=== PATIENT | female | born 1955 | race Caucasian/White ===

== ENCOUNTER 2017-03-10 10:13 | Inpatient (IN) | payer OTHER ==
[2017-03-10 10:47] LABS: Basophils % (Auto) 0.6 % (0.0-1.8); Eosinophils % (Auto) 4.5 % (0.0-4.3); Hematocrit 41.7 % (30.3-42.9); Hemoglobin 13.6 gm/dl (10.1-14.3); Mean Corpuscular HGB Conc 33 % (30-34); Mean Corpuscular Hemoglobin 29 pg (28-32); Mean Corpuscular Volume 89 fl (79-97); Platelet Count 163 K/mm3 (140-440); Red Blood Count 4.69 M/mm3 (3.65-5.03); White Blood Count 7.2 K/mm3 (4.5-11.0)
[2017-03-10 11:15] LABS: Anion Gap 20 mmol/L; Blood Urea Nitrogen 12 mg/dL (7-17); Calcium 8.6 mg/dL (8.4-10.2); Carbon Dioxide 25 mmol/L (22-30); Chloride 99.1 mmol/L (98-107); Glucose 365 mg/dL (65-100); Potassium 4.4 mmol/L (3.6-5.0); Sodium 140 mmol/L (137-145)
--- NOTE | 2017-03-10 11:35 | XRay Report ---
CHEST 2 VIEWS INDICATION: Chest pain, shortness of breath. COMPARISON: 08/17/2014. FINDINGS: PA and lateral chest radiographs demonstrate normal cardiomediastinal silhouette. Clear lungs. Mild thoracic spine degenerative spurring. CONCLUSION: No acute disease in the chest. Thank you for the opportunity to participate in this patient's care.
--- NOTE | 2017-03-10 11:57 | Emergency Department Report ---
Chief Complaint: Chest Pain Stated Complaint: ERICK/CHEST PAIN Time Seen by Provider: 03/10/17 11:52 - HPI History of Present Illness: PT c/o L sided chest pain that started at 0800 gradually onset, + sob PT states symptoms started after she at breakfast Pt states her daughter told her to take ASA but her coworkers thought she needed to be evaluated in ED PT states she is not taking her Metformin because she can not afford it. PT states her medication is $30 dollars a month - ROS Review of Systems: + nausea + chest pain + sob + intermittent fluttering in chest - weakness - Exam Vital Signs: Vital Signs 03/10/17 10:23 Temperature 99.2 F Pulse Rate 88 Respiratory 17 Rate Blood Pressure 165/88 O2 Sat by Pulse 97 Oximetry Physical Exam: PT is alert steady gait no acute resp distress + chest wall ttp no acute focal weakness MSE screening note: Focused history and physical exam performed. Due to findings the following was ordered: lab ED Medical Decision Making - Lab Data Result diagrams: 03/10/17 10:35 03/10/17 10:35 ED Disposition for MSE Condition: Stable Referrals: MARILEE WERI MD [Primary Care Provider] - 3-5 Days
[2017-03-10] MEDS ORDERED: ASPIRIN PO ONE (13:54)
[2017-03-10] MEDS ORDERED: CARAFATE PO ONE (13:54)
[2017-03-10] MEDS ORDERED: ALUM-MAG HYDROX-SIMETH 200-200-20MG/5ML PO ONE (13:54)
[2017-03-10] MEDS ORDERED: NITROSTAT SL PRN (13:54)
--- NOTE | 2017-03-10 13:55 | Emergency Department Report ---
ED Chest Pain HPI - General Chief Complaint: Chest Pain Stated Complaint: ERICK/CHEST PAIN Time Seen by Provider: 03/10/17 11:52 Source: patient, RN notes reviewed, old records reviewed Mode of arrival: Ambulatory Limitations: No Limitations - History of Present Illness Initial Comments: This is a 61-year-old female. She is previously unknown to me. Her primary care doctor is Dr. Lee Rivers. Past medical history includes obesity, hypertension and diabetes. The patient presents to the ER with a complaint of chest pain. The chest pain is left-sided and radiates down the left upper extremity. It is associated with nausea, shortness of breath, sensation of impending doom. There is no leg pain. There is no leg swelling. No recent trips greater than 4 hours. No recent hospital admissions. No recent cocaine use. No recent aspirin use. No recent cardiac risk stratification. MD Complaint: chest pain -: Gradual Onset: during rest Pain Location: left chest Pain Radiation: LUE Quality: tightness, heaviness Consistency: intermittent Improves With: nothing Worsens With: nothing re: nausea, diaphoresis, dyspnea, sense of impending doom Other Symptoms: denies: cough, fever Treatments Prior to Arrival: none Aspirin use within the Past 7 Days: (0) No - Related Data On Oral Contraceptives: No Home Medications Medication Instructions Recorded Confirmed Last Taken Acetaminophen with Codeine 1 each PO Q6HR PRN 03/10/17 03/10/17 03/10/17 [Acetaminophen-Codeine #2 TAB] Gabapentin [Neurontin] 300 mg PO Q8HR 03/10/17 03/10/17 03/10/17 Allergies Allergy/AdvReac Type Severity Reaction Status Date / Time No Known Allergies Allergy Unverified 08/17/14 21:15 Heart Score - HEART Score History: Highly suspicious EKG: Normal Age: 45-65 Risk factors: > 3 risk factors or hx of atherosclerotic disease Troponin: < normal limit HEART Score: 5 - Critical Actions Critical Actions: 4-6 pts:12-16.6% risk of adverse cardiac event. Should be admitted ED Review of Systems ROS: Stated complaint: ERICK/CHEST PAIN Other details as noted in HPI Constitutional: diaphoresis, malaise, weakness Eyes: denies: vision change ENT: denies: epistaxis Respiratory: shortness of breath Cardiovascular: chest pain Gastrointestinal: nausea Genitourinary: denies: dysuria Musculoskeletal: arthralgia Skin: denies: lesions Neurological: numbness, paresthesias ED Past Medical Hx - Past Medical History Hx Diabetes: Yes (no meds) Hx Arthritis: Yes Additional medical history: Pneumonia numerous times, right leg pain - Surgical History Past Surgical History?: Yes Hx Cholecystectomy: Yes Additional Surgical History: - Social History Smoking Status: Never Smoker Substance Use Type: Alcohol - Medications Home Medications: Home Medications Medication Instructions Recorded Confirmed Last Taken Type Acetaminophen with Codeine 1 each PO Q6HR PRN 03/10/17 03/10/17 03/10/17 History [Acetaminophen-Codeine #2 TAB] Gabapentin [Neurontin] 300 mg PO Q8HR 03/10/17 03/10/17 03/10/17 History ED Physical Exam - General Limitations: No Limitations General appearance: alert, in no apparent distress - Head Head exam: Present: atraumatic, normocephalic - Eye Eye exam: Present: normal appearance, EOMI. Absent: nystagmus - ENT ENT exam: Present: normal exam, normal orophraynx, mucous membranes moist, normal external ear exam - Neck Neck exam: Present: normal inspection, full ROM. Absent: tenderness, meningismus - Respiratory Respiratory exam: Present: normal lung sounds bilaterally, chest wall tenderness (there is reproducible chest wall tenderness. There is no breast tenderness. During the process examination, I'm escorted by [facility]). Absent: respiratory distress, wheezes, rales, rhonchi, stridor - Cardiovascular Cardiovascular Exam: Present: regular rate, normal rhythm. Absent: systolic murmur, diastolic murmur, rubs, gallop - GI/Abdominal GI/Abdominal exam: Present: soft, normal bowel sounds. Absent: distended, tenderness, guarding, rebound, rigid - Extremities Exam Extremities exam: Present: normal inspection, full ROM, normal capillary refill. Absent: tenderness, pedal edema, joint swelling, calf tenderness - Back Exam Back exam: Present: normal inspection, full ROM. Absent: tenderness, CVA tenderness (R), CVA tenderness (L), muscle spasm, paraspinal tenderness, vertebral tenderness - Neurological Exam Neurological exam: Present: alert, oriented X3, normal gait, other (Extraocular movements intact. Tongue midline. No facial droop. Facial sensation intact to light touch in the V1, V2, V3 distribution bilaterally. 5 and 5 strength in 4 extremities.. Sensation is intact to light touch in 4 extremities.). Absent : motor sensory deficit - Psychiatric Psychiatric exam: Present: normal affect, normal mood - Skin Skin exam: Present: warm, dry, intact, normal color. Absent: rash ED Course Vital Signs 03/10/17 03/10/17 03/10/17 10:23 13:51 14:01 Temperature 99.2 F Pulse Rate 88 72 78 Respiratory 17 11 L Rate Blood Pressure 165/88 152/69 Blood Pressure [Left] O2 Sat by Pulse 97 96 Oximetry 03/10/17 03/10/17 03/10/17 14:11 14:21 14:30 Temperature Pulse Rate 73 72 73 Respiratory 10 L 11 L 9 L Rate Blood Pressure 152/69 157/91 147/72 Blood Pressure [Left] O2 Sat by Pulse 97 99 98 Oximetry 03/10/17 03/10/17 03/10/17 14:41 14:51 15:00 Temperature Pulse Rate 74 70 72 Respiratory 14 14 11 L Rate Blood Pressure 147/72 151/82 166/82 Blood Pressure [Left] O2 Sat by Pulse 96 97 97 Oximetry 03/10/17 03/10/17 03/10/17 15:11 15:21 15:30 Temperature Pulse Rate 71 70 72 Respiratory 10 L 16 16 Rate Blood Pressure 166/82 163/90 162/89 Blood Pressure [Left] O2 Sat by Pulse 98 91 95 Oximetry 03/10/17 03/10/17 03/10/17 15:45 15:51 16:00 Temperature Pulse Rate 72 71 69 Respiratory 14 14 10 L Rate Blood Pressure 162/89 155/102 155/102 Blood Pressure [Left] O2 Sat by Pulse 98 96 98 Oximetry 03/10/17 03/10/17 03/10/17 16:11 16:21 16:31 Temperature Pulse Rate 69 68 70 Respiratory 15 17 12 Rate Blood Pressure 162/89 162/89 162/89 Blood Pressure [Left] O2 Sat by Pulse 97 92 96 Oximetry 03/10/17 03/10/17 03/10/17 16:41 16:51 17:01 Temperature Pulse Rate 67 66 71 Respiratory 16 19 12 Rate Blood Pressure 154/81 154/81 154/81 Blood Pressure [Left] O2 Sat by Pulse 98 97 98 Oximetry 08/03/10/17 03/10/17 17:11 17:27 17:31 Temperature Pulse Rate 68 75 67 Respiratory 12 18 11 L Rate Blood Pressure 154/81 154/81 154/81 Blood Pressure [Left] O2 Sat by Pulse 97 97 97 Oximetry 03/10/17 03/10/17 03/10/17 17:41 17:51 18:01 Temperature Pulse Rate 67 69 71 Respiratory 12 13 17 Rate Blood Pressure 154/81 154/81 154/81 Blood Pressure [Left] O2 Sat by Pulse 96 98 95 Oximetry 03/10/17 03/10/17 03/10/17 18:11 18:21 18:25 Temperature Pulse Rate 73 69 Respiratory 14 13 16 Rate Blood Pressure 154/81 154/81 Blood Pressure [Left] O2 Sat by Pulse 97 96 98 Oximetry 03/10/17 03/10/17 18:31 18:32 Temperature Pulse Rate 74 72 Respiratory 17 18 Rate Blood Pressure 154/81 Blood Pressure 135/96 [Left] O2 Sat by Pulse 97 97 Oximetry SUMANTH score - Sumanth Score Age > 65: (0) No Aspirin use within the Past 7 Days: (0) No 3 or more CAD Risk Factors: (1) Yes 2 or more Angina events in past 24 hrs: (1) Yes Known CAD with more than 50% Stenosis: (0) No Elevated Cardiac Markers: (0) No ST Deviation Greater than 0.5mm: (0) No SUMANTH Score: 2 ED Medical Decision Making - Lab Data Result diagrams: 03/10/17 10:35 03/11/17 05:30 Vital Signs 03/10/17 03/10/17 03/10/17 10:23 13:51 14:01 Temperature 99.2 F Pulse Rate 88 72 78 Respiratory 17 11 L Rate Blood Pressure 165/88 152/69 O2 Sat by Pulse 97 96 Oximetry 03/10/17 14:11 Temperature Pulse Rate 73 Respiratory 10 L Rate Blood Pressure 152/69 O2 Sat by Pulse 97 Oximetry Lab Results 03/10/17 03/10/17 03/10/17 Range/Units 10:35 10:35 10:35 WBC 7.2 (4.5-11.0) K/mm3 RBC 4.69 (3.65-5.03) M/mm3 Hgb 13.6 (10.1-14.3) gm/dl Hct 41.7 (30.3-42.9) % MCV 89 (79-97) fl MCH 29 (28-32) pg MCHC 33 (30-34) % RDW 14.0 (13.2-15.2) % Plt Count 163 (140-440) K/mm3 Lymph % (Auto) 32.3 (13.4-35.0) % Mcdonald % (Auto) 6.6 (0.0-7.3) % Eos % (Auto) 4.5 H (0.0-4.3) % Baso % (Auto) 0.6 (0.0-1.8) % Lymph # 2.3 (1.2-5.4) K/mm3 Mcdonald # 0.5 (0.0-0.8) K/mm3 Eos # 0.3 (0.0-0.4) K/mm3 Baso # 0.0 (0.0-0.1) K/mm3 Seg Neutrophils % 56.0 (40.0-70.0) % Seg Neutrophils # 4.0 (1.8-7.7) K/mm3 Sodium 140 (137-145) mmol/L Potassium 4.4 (3.6-5.0) mmol/L Chloride 99.1 (98-107) mmol/L Carbon Dioxide 25 (22-30) mmol/L Anion Gap 20 mmol/L BUN 12 (7-17) mg/dL Creatinine 0.6 L (0.7-1.2) mg/dL Estimated GFR > 60 ml/min BUN/Creatinine Ratio 20.00 % Glucose 365 H (65-100) mg/dL Calcium 8.6 (8.4-10.2) mg/dL Troponin T < 0.010 (0.00-0.029) ng/mL Lipase 27 (13-60) units/L // Range/Units 13:28 WBC (4.5-11.0) K/mm3 RBC (3.65-5.03) M/mm3 Hgb (10.1-14.3) gm/dl Hct (30.3-42.9) % MCV (79-97) fl MCH (28-32) pg MCHC (30-34) % RDW (13.2-15.2) % Plt Count (140-440) K/mm3 Lymph % (Auto) (13.4-35.0) % Mcdonald % (Auto) (0.0-7.3) % Eos % (Auto) (0.0-4.3) % Baso % (Auto) (0.0-1.8) % Lymph # (1.2-5.4) K/mm3 Mcdonald # (0.0-0.8) K/mm3 Eos # (0.0-0.4) K/mm3 Baso # (0.0-0.1) K/mm3 Seg Neutrophils % (40.0-70.0) % Seg Neutrophils # (1.8-7.7) K/mm3 Sodium (137-145) mmol/L Potassium (3.6-5.0) mmol/L Chloride (98-107) mmol/L Carbon Dioxide (22-30) mmol/L Anion Gap mmol/L BUN (7-17) mg/dL Creatinine (0.7-1.2) mg/dL Estimated GFR ml/min BUN/Creatinine Ratio % Glucose (65-100) mg/dL Calcium (8.4-10.2) mg/dL Troponin T < 0.010 (0.00-0.029) ng/mL Lipase (13-60) units/L - EKG Data -: EKG Interpreted by Me - EKG Data 03/10/17 15:07 EKG #1 demonstrates normal sinus, 87 beats per minute, left axis urination, borderline high left ventricular voltage, poor R progression, abnormal EKG, not morphologic consistent with STEMI. EKG #2 demonstrates normal sinus, premature ventricular contractions, 80 bpm, resolution of left axis deviation, resolution of poor progression, abnormal EKG , not morphologically consistent with STEMI. - Radiology Data Radiology results: image reviewed interpreted by me: X-ray the chest is negative for acute disease - Medical Decision Making Differential diagnosis: Acute coronary syndrome, GERD, gastritis, costochondritis Assessment and plan: 61-year-old female with chest pain, shortness of breath, diaphoresis, nausea, abnormal EKG. No pulmonary embolus or DVT risk factors, low risk by well's criteria. There is a reproducible component to the patient' s chest wall pain, however her clinical history was very impressive, and does not have close outpatient follow-up. Therefore, she will be admitted to the hospital for acute coronary syndrome risk stratification. The case was presented to the Hospital physician, Dr. Greenfield, who accepted the patient to his service. Critical care attestation.: If time is entered above; I have spent that time in minutes in the direct care of this critically ill patient, excluding procedure time. ED Disposition Clinical Impression: Abnormal EKG Chest pain Qualifiers: Ischemic chest pain type: unspecified angina pectoris type Qualified Code(s): I20.9 - Angina pectoris, unspecified Disposition: 09 OP ADMIT IP TO THIS HOSP Is pt being admited?: Yes Condition: Stable
--- NOTE | 2017-03-10 15:16 | Admit Criteria Form ---
Admission Criteria Documentation: CARDIOLOGY GRG Clinical Indications for Admission to Inpatient Care ([place]/check or initial the applicable condition/criteria) Hospital admission is needed for appropriate care of the patient because of ANY ONE of the following: [ ] I. Hemodynamic instability as indicated by ALL of the following (1)(2)(3) (4)(5)(6)(7)(8)(9)(10) [ ]a) Vital sign abnormality not readily corrected by appropriate treatment with 12-24 hours for ANY ONE: [ ]i) Hypotension that persists despite appropriate treatment (eg, volume repletion) [ ]ii) Tachycardiathat persists despite appropriate tx ( e.g., analgesia, fluids, sedation as indicated [ ]iii) Orthostatic vital sign changes that persists despite appropriate treatment (eg, volume repletion) [ ]b) Vital sign abnormailty that is severe indicated by ANY ONE of the following: [ ]i) Inadequate perfusion indicated by ANY ONE of the following: [ ] 1) Lactic acidosis (> 2 mmol/L) [ ] 2) New abnormal capillary refill (> 3 seconds) [ ] 3) Reduced urine output [ ] 4) New altered mental status [ ] 5) Myocardial Ischemia [ ] 6) Other metabolic acidosis (arterial pH <7.35 ) not otherwise explained. [ ]ii) Mean arterial pressure[A] less than 60 mm Hg [ ]iii) Mean arterial pressure[A] less than 70 mm Hg after 30 minutes of appropriate treatment (eg, fluid resuscitation) [ ]iv) Sustained heart rate greater than 120 beats per minute in adult or child 6 years or older[B] [ ]v) IV inotropic or vasopressor medication required to maintain adequate blood pressure or perfusion [ ] II. Severe heart failure as indicated by ANY ONE of the following(17)(18) [ ]a) Respiratory distress [ ]b) Hypotension [ ]c) Debilitating anasarca refractory to therapy (eg, tissue breakdown with infection)[C](19) [ ]d) Cardiac arrhythmias of immediate concern [ ]e) Myocardial ischemia [ ] III. Cardiac arrhythmias or findings of immediate concern indicated by ANY ONE of the following (21)(22): [ ] a) Heart rhythms that are inherently dangerous or unstable indicated by ANY ONE of the following (23)(24)(25): [ ] i) Resuscitated ventricular fibrillation or cardiac arrest [ ] ii) Ventricular escape rhythm [ ] iii) Sustained ventricular tachycardia (30 seconds or more of ventricular rhythm at greater than 100 beats per minute) [ ] iv) Nonsustained ventricular tachycardia and ANY ONE of the following: [ ] 1) Suspected cardiac ischemia as cause or consequence of ventricular tachycardia [ ] 2) Acute myocarditis [ ] b) Unstable cardiac conduction defects indicated by ANY ONE of the following(25)(26)(27) [ ] i) Type II second-degree atrioventricular block [ ]ii) Third-degree atrioventricular block [ ]iii) New-onset left bundle branch block with suspected myocardial ischemia [ ]c) Any heart rhythm and ANY ONE of the following (23)(24)(28)(29) (30) [ ] i) Continuous long-term ECG monitoring needed (e.g., initiation of drug requiring monitoring for more than 24 hours) [ ] ii) Patient has automatic implanted cardioverter defibrillator that is repeatedly firing, malfunctioning, or in need of immediate adjustment of settings beyond the scope of ambulatory or observation care [ ]d) Heart rhythms of concern due to ANY ONE of the following: [ ] i) Hypotension [ ] ii) Respiratory distress [ ] iii) Association with other significant symptoms (e.g., bradycardia with syncope or ongoing dizziness, supraventricular tachycardia with chest pain (28)(29)(31) [ ] IV. Monitoring for cardiac contusion beyond the scope of observation care needed [A](32)(33)(34) [ ] V. Surgical or device complication (e.g., valve replacement complication , ICD disfunction or pacemaker dysfunction) (49)(50)(51)(52)(53)(54) [ ] . Inpatient palliative care needed. [F](51)(52) Also use Inpatient Palliative Care Criteria [ ] VII. Nonbacterial thrombotic (marantic) endocarditis(43)(44)(55)(56)(57) [X ] VIII. Cardiology condition, symptom, or finding for which emergency and observation care has failed or are not considered appropriate. [ ] IX. Acute valvular disease requiring inpatient as indicated by ANY ONE of the following (40)(41) [ ]a) Acute valvular regurgitation (42) [ ]b) Noninfectious valvulitis (43)(44) [ ]c) Obstructive valve thrombosis (45)(46) [ ]d) Paravalvular leak(47)(48) [ ]e) Other significant valvular disorder remaining after emergency or observation level of care (as appropriate) [ ]X. Pericardial disease requiring inpatient treatment as indicated by ANY ONE of the following (35)(36)(37)(38) [ ]a) Suspected tamponade [ ]b) Hemopericardium [ ]c) Other significant pericardial disorder remaining after emergency or observation level of care (as appropriate)(39) [ ] XI. Cardiac ischemia beyond scope of emergency and observation care. [ ] XII. Cyanotic heart disease requiring inpatient care as indicated by 1 or more of the following(58)(59)(60): [ ]a) Acute onset of hypoxemia [ ]b) Exacerbation [ ] XIII. Hypertension requiring inpatient treatment as indicated by ANYONE of the following(11)(12)(13)(14): [ ]a) Severe hypertension (SBP greater than 180 mm Hg or DBP greater than 110 mm Hg, or greater than the 95th percentile for age, gender, and height in pediatric patients) that cannot be controlled (eg, to SBP less than 160 mm Hg and DBP less than 100 mm Hg) by emergency department or observation care treatment(15) [ ]b) Acute end organ damage secondary to hypertension (SBP greater than 140 mm Hg or DBP greater than 90 mm Hg) as indicated by ANYONE of the following: [ ] i) Hypertensive encephalopathy (eg, Altered mental status)(16) [ ] ii) Cerebral infarction [ ] iii) Intracranial hemorrhage [ ] iv) Myocardial ischemia or infarction [ ] v) Heart failure (eg, pulmonary edema) [ ] vi) Aortic dissection [ ] vii) Increased creatinine (new) with reduction of more than 50% in estimated glomerular filtration rate from baseline [ ] viii) Papilledema [ ] ix) Retinal hemorrhage [ ] x) Microangiopathic hemolytic anemia [ ] xi) Seizure [ ] xii) Other significant finding secondary to hypertension [ ] XIV. Complications of transplanted heart indicated by ANY ONE of the following(61): [ ]a) Acute graft rejection requiring inpatient management (eg, intravenous imunosuppression)(62)(63) [ ]b) Acute graft heart failure indicated by ANY ONE of the following(64): [ ] i) Hemodynamic instability [ ] ii) Cardiac arrhythmias of immediate concern [ ] iii) Pulmonary edema that is very severe (eg, mechanical ventilation needed, imminent or likely, need for 100% oxygen to keep oxygen saturation above 90%) [ ] iv) Pulmonary edema that is persistent as indicated by ALL of the following: [ ] 1) New need for oxygen therapy to keep oxygen saturation above 90 % (or increased FiO2 need from baseline) [ ] 2) Has not improved sufficiently with emergency department or observation care IV diuretics or other heart failure treatments[E]. [ ] iv) Altered mental status that is severe or persistent [ ] iv) Increased creatinine (new on laboratory test) with reduction of more than 50% in estimated glomerular filtration rate from baseline [ ] iv) Progressively (ongoing) rising creatinine (known from past laboratory test) with reduction of more than 25% in estimated glomerular filtration rate from baseline [ ] iv) Acute renal failure [ ] iv) Acute peripheral ischemia (eg, examination shows pulseless, cool, mottled, or cyanotic extremity) [ ] iv) Pulmonary artery catheter monitoring needed [ ] iv) Other sign or symptom of heart failure requiring inpatient treatment (ie, too severe or not responsive to outpatient and observation care treatment) [ ]c) Infection requiring inpatient management (eg, Hemodynamic instability, need for intravenous antimicrobial treatment)(66)(67)(68)(69)(70) [ ]d) Cardiac allograft vasculopathy requiring inpatient management (eg evidence of cardiacischemia)(71) [ ]e) Other complication of transplanted heart (eg, stroke, severe pulmonary hypertension, severe valvular dysfunction) requiring inpatient management(72) The original [employer] content created by [employer] has been revised. The portions of the content which have been revised are identified through the use of italic text or in bold, and [facility] has neither reviewed nor approved the modified material. All other unmodified content is copyright [facility]. Please see references footnoted in the original [facility] edition 2017 Admission Criteria Met: Yes
[2017-03-10] MEDS ORDERED: DULCOLAX PR PRN (18:45)
[2017-03-10] MEDS ORDERED: MILK OF MAGNESIA PO PRN (18:45)
[2017-03-10] MEDS ORDERED: ZOFRAN IV PRN (18:45)
[2017-03-10] MEDS ORDERED: AMBIEN PO PRN (18:45)
[2017-03-10] MEDS ORDERED: DILAUDID IV PRN (18:45)
[2017-03-10] MEDS ORDERED: PERCOCET 5/325 PO PRN (18:45)
--- NOTE | 2017-03-10 18:45 | History and Physical Report ---
History of Present Illness Date of examination: 03/10/17 Date of admission: 03/10/17 15:10 Chief complaint: Chest pain for 1 day History of present illness: - History of Present Illness Initial Comments: This is a 61-year-old female. Her primary care doctor is Dr. Lee Rivers. Past medical history includes obesity, hypertension and diabetes.The patient presents to the ER with a complaint of chest pain. The chest pain is left- sided and radiates down the left upper extremity. It is associated with nausea , shortness of breath, sensation of impending doom. There is no leg pain. There is no leg swelling. No recent trips greater than 4 hours. No recent hospital admissions. No recent cocaine use. No recent aspirin use. No recent cardiac risk stratification. MD Complaint: chest pain -: Gradual Onset: during rest Pain Location: left chest Pain Radiation: LUE Quality: tightness, heaviness Consistency: intermittent Improves With: nothing Worsens With: nothing re: nausea, diaphoresis, dyspnea, sense of impending doom Other Symptoms: denies: cough, fever Treatments Prior to Arrival: none Aspirin use within the Past 7 Days: (0) No - Related Data On Oral Contraceptives: No Home Medications Medication Instructions Recorded Confirmed Last Taken Acetaminophen with Codeine 1 each PO Q6HR PRN 03/10/17 03/10/17 03/10/17 [Acetaminophen-Codeine #2 TAB] Gabapentin [Neurontin] 300 mg PO Q8HR 03/10/17 03/10/17 03/10/17 Allergies Allergy/AdvReac Type Severity Reaction Status Date / Time No Known Allergies Allergy Unverified 08/17/14 21:15 Past Medical History Hx Diabetes: Yes (no meds) Hx Arthritis: Yes Additional medical history: Pneumonia numerous times, right leg pain - Surgical History Past Surgical History?: Yes Hx Cholecystectomy: Yes Additional Surgical History: - Social History Smoking Status: Never Smoker Substance Use Type: Alcohol - Medications Home Medications: Home Medications Medication Instructions Recorded Confirmed Last Taken TypeAcetaminophen with Codeine1 each PO Q6HR PRN03/10/History[Acetaminophen-Codeine # 2 TAB]Gabapentin [Neurontin]300 mg PO Q8HR03/10/History Medications and Allergies Allergies Allergy/AdvReac Type Severity Reaction Status Date / Time No Known Allergies Allergy Unverified 08/17/14 21:15 Home Medications Medication Instructions Recorded Confirmed Last Taken Type Acetaminophen with Codeine 1 each PO Q6HR PRN 03/10/17 03/10/17 03/10/17 History [Acetaminophen-Codeine #2 TAB] Gabapentin [Neurontin] 300 mg PO Q8HR 03/10/17 03/10/17 03/10/17 History Active Meds: Active Medications Nitroglycerin (Nitrostat) 0.4 mg SL .Q5MIN PRN PRN Reason: Chest Pain Review of Systems All systems: negative Cardiovascular: chest pain Exam - Physical Exam Narrative exam: Lying comfortably - Constitutional Vitals: Temp Pulse Resp BP Pulse Ox 99.2 F 70 16 163/90 98 03/10/17 10:23 03/10/17 15:21 03/10/17 18:25 03/10/17 15:21 03/10/17 18:25 General appearance: Present: no acute distress, well-nourished - EENT Eyes: Present: PERRL ENT: hearing intact, clear oral mucosa - Neck Neck: Present: supple, normal ROM - Respiratory Respiratory effort: normal Respiratory: bilateral: CTA - Cardiovascular Heart rate: 80 Rhythm: regular Heart Sounds: Present: S1 & S2. Absent: rub, click - Extremities Extremities: no ischemia, pulses intact, pulses symmetrical, No edema Peripheral Pulses: within normal limits - Abdominal General gastrointestinal: Present: soft, non-tender, non-distended, normal bowel sounds Female genitourinary: Present: normal - Rectal Rectal Exam: deferred - Integumentary Integumentary: Present: clear, warm, dry - Musculoskeletal Musculoskeletal: gait normal, strength equal bilaterally - Psychiatric Psychiatric: appropriate mood/affect, intact judgment & insight - Neurologic Neurologic: CNII-XII intact, moves all extremities - Allied Health Allied health notes reviewed: nursing, case management Results - Labs CBC & Chem 7: 03/10/17 10:35 03/11/17 05:30 Labs: Laboratory Last Values WBC 7.2 K/mm3 (4.5-11.0) 03/10/17 10:35 RBC 4.69 M/mm3 (3.65-5.03) 03/10/17 10:35 Hgb 13.6 gm/dl (10.1-14.3) 03/10/17 10:35 Hct 41.7 % (30.3-42.9) 03/10/17 10:35 MCV 89 fl (79-97) 03/10/17 10:35 MCH 29 pg (28-32) 03/10/17 10:35 MCHC 33 % (30-34) 03/10/17 10:35 RDW 14.0 % (13.2-15.2) 03/10/17 10:35 Plt Count 163 K/mm3 (140-440) 03/10/17 10:35 Lymph % (Auto) 32.3 % (13.4-35.0) 03/10/17 10:35 [place] % (Auto) 6.6 % (0.0-7.3) 03/10/17 10:35 Eos % (Auto) 4.5 % (0.0-4.3) H 03/10/17 10:35 Baso % (Auto) 0.6 % (0.0-1.8) 03/10/17 10:35 Lymph # 2.3 K/mm3 (1.2-5.4) 03/10/17 10:35 [place] # 0.5 K/mm3 (0.0-0.8) 03/10/17 10:35 Eos # 0.3 K/mm3 (0.0-0.4) 03/10/17 10:35 Baso # 0.0 K/mm3 (0.0-0.1) 03/10/17 10:35 Seg Neutrophils % 56.0 % (40.0-70.0) 03/10/17 10:35 Seg Neutrophils # 4.0 K/mm3 (1.8-7.7) 03/10/17 10:35 Sodium 140 mmol/L (137-145) 03/10/17 10:35 Potassium 4.4 mmol/L (3.6-5.0) 03/10/17 10:35 Chloride 99.1 mmol/L (98-107) 03/10/17 10:35 Carbon Dioxide 25 mmol/L (22-30) 03/10/17 10:35 Anion Gap 20 mmol/L 03/10/17 10:35 BUN 12 mg/dL (7-17) 03/10/17 10:35 Creatinine 0.6 mg/dL (0.7-1.2) L 03/10/17 10:35 Estimated GFR > 60 ml/min 03/10/17 10:35 BUN/Creatinine Ratio 20.00 % 03/10/17 10:35 Glucose 365 mg/dL (65-100) H 03/10/17 10:35 Calcium 8.6 mg/dL (8.4-10.2) 03/10/17 10:35 Troponin T < 0.010 ng/mL (0.00-0.029) 03/10/17 16:19 Lipase 27 units/L (13-60) 03/10/17 10:35 - Imaging and Cardiology EKG: report reviewed Chest x-ray: report reviewed Assessment and Plan Advance Directives: Yes (FC) VTE prophylaxis?: Chemical Plan of care discussed with patient/family: Yes - Patient Problems (1) Chest pain Current Visit: Yes Status: Acute Qualifiers: Chest pain type: C Ischemic chest pain type: unspecified angina pectoris type Qualified Code(s): I20.9 - Angina pectoris, unspecified Plan to address problem: Serial cardiac enzymes Lexiscan in AM (2) T2DM (type 2 diabetes mellitus) Current Visit: Yes Status: Chronic Qualifiers: Diabetes mellitus complication status: without complication Diabetes mellitus complication detail: D Diabetic retinopathy severity: D Proliferative retinopathy type: P Diabetes mellitus macular edema: D Diabetes mellitus cabinet finisher insulin use: D Laterality: L Chronic kidney disease stage: C Plan to address problem: Borderline Not on any medications (3) DVT prophylaxis Current Visit: Yes Status: Acute Plan to address problem: On Lovenox
[2017-03-10] MEDS ORDERED: D5NS 1,000 ML IV SCH (19:30)
[2017-03-10 20:11] LABS: Creatine Kinase MB 2.3 ng/mL (0.0-4.0)
[2017-03-10 20:12] LABS: Creatine Kinase 60 units/L (30-135)
[2017-03-10] MEDS: NEURONTIN PO SCH (21:18)
[2017-03-10] MEDS ORDERED: LOVENOX SUB-Q SCH (22:00)
[2017-03-11] MEDS: TYLENOL PO PRN ×2 (00:10→12:23)
[2017-03-11 01:42] LABS: Creatine Kinase MB 1.8 ng/mL (0.0-4.0)
[2017-03-11 01:43] LABS: Creatine Kinase 43 units/L (30-135)
[2017-03-11] MEDS: NEURONTIN PO SCH ×2 (06:29→08:10)
[2017-03-11 06:42] LABS: Alanine Aminotransferase 12 units/L (7-56); Albumin 3.6 g/dL (3.9-5); Albumin/Globulin Ratio 1.3 %; Alkaline Phosphatase 72 units/L (35-129); Anion Gap 16 mmol/L; Blood Urea Nitrogen 14 mg/dL (7-17); Calcium 8.2 mg/dL (8.4-10.2); Carbon Dioxide 27 mmol/L (22-30); Glucose 216 mg/dL (65-100); Potassium 4.2 mmol/L (3.6-5.0); Sodium 140 mmol/L (137-145); Total Protein 6.4 g/dL (6.3-8.2)
[2017-03-11] MEDS: NOVOLOG SUB-Q SCH ×2 (08:50→12:23)
[2017-03-11] MEDS ORDERED: LEXISCAN IV ONE ×2 (09:12→09:14)
[2017-03-11 12:00] VITALS: BP 156/82
--- NOTE | 2017-03-11 14:30 | Treadmill Report ---
NUCLEAR STRESS REPORT The patient is brought to the Cardiology lab and nuclear stress test is performed by injecting Lexiscan. The patient tolerated the procedure well. Post-stress images reveal fairly homogeneous distribution of the isotope with no significant reversibility to indicate definite ischemia. Minimal anteroapical abnormalities are present and are of doubtful significance. Accompanying gated study shows good systolic function with no wall motion abnormalities. Ejection fraction is calculated to be 64%. IMPRESSION: 1. Dual isotope study is negative for significant reversible defects to indicate ischemia. Minimal anteroapical changes are noted and are of questionable significance probably artifactual. 2. Good systolic function with no wall motion abnormalities. Calculated ejection fraction of 64%. 3. Suggest clinical correlation. JOB# [id number] KB/NTS
--- NOTE | 2017-03-11 15:10 | Discharge Summary ---
Providers - Providers Date of Admission: 03/10/17 15:10 Date of discharge: 03/11/17 Attending physician: DANNY MOHR Primary care physician: MARILEE RIVERS Hospitalization Condition: Stable Hospital course: Patient is 61-year-old woman who presented with chest pain and had a negative cardiac evaluation including stress test. -Chest pain most likely costochondritis, patient has a left tender breast mass and scheduled to have a mammogram March [address] Marilee Rivers. Also recommend patient get ultrasound and evaluation by blood breast surgeon -Breast mass, left nipple -Hypertension -Type 2 diabetes mellitus Disposition: DC-01 TO HOME OR SELFCARE Time spent for discharge: 32 minutes Core Measure Documentation - Palliative Care Palliative Care/ Comfort Measures: Not Applicable - Core Measures Any of the following diagnoses?: none - VTE Discharge Requirements Deep Vein Thrombosis/Pulmonary Embolism Present on Admission: No Has pt received <5 days of overlap therapy or INR<2.0: No Anticoagulant overlap therapy prescribed at discharge: No Contraindication No Overlap Therapy order at DC: Not Indicated Exam - Physical Exam Narrative exam: GEN: WDWN, NAD, AWAKE, ALERT, ORIENTATED x 3 HEENT: NCAT, PERRL, EOMI, OP CLEAR NECK: SUPPLE, NO THYROMEGALY, NO JVD, NO LAD CVS: RRR, NORMAL S1S2 LUNGS/CHEST: CTA B, NORMAL CHEST EXPANSION B, GOOD AIR ENTRY B ABD: SOFT, NTND, GBS, NO REBOUND OR GUARDING EXT/SKIN: NO SIGNIFICANT EDEMA OR RASH MSK: FROM X 4 EXTREMITIES NEURO: CN 2-12 GROSSLY INTACT, NO FOCAL DEFICITS PSY: CALM - Constitutional Vitals: Temp Pulse Resp BP Pulse Ox 98.5 F 71 20 156/82 99 03/11/17 12:00 03/11/17 12:00 03/11/17 12:00 03/11/17 12:00 03/11/17 12:00 Plan Activity: other (no strenous activites until cleared by PCP. ) Diet: low salt, diabetic Additional Instructions: Please follow with Dr. Marilee Rivers the mammogram scheduled for 03/26/2017, also recommend breast ultrasound and a consultation with Dr. Soraida Mcbride, breast surgeon Follow up with: MARILEE RIVERS MD [Primary Care Provider] - 3-5 Days SORAIDA MCBRIDE MD [Staff Physician] - 7 Days
== END 2017-03-11 16:30 | disposition home or self-care (01) | DRG 206 ==
LOC: ED 10:13 → 4A 15:10
PROVIDERS: ADMIT Internal Medicine; ATTEND Internal Medicine
DX: M94.0 Chondrocostal junction syndrome [Tietze] (principal); E66.9 Obesity, unspecified; I20.9 Angina pectoris, unspecified; I10 Essential (primary) hypertension; E11.9 Type 2 diabetes mellitus without complications; M19.90 Unspecified osteoarthritis, unspecified site; N63 Unspecified lump in breast; Z68.37 Body mass index [BMI] 37.0-37.9, adult; Z79.899 Other long term (current) drug therapy; Z90.49 Acquired absence of other specified parts of digestive tract
CPT/HCPCS: 36415; 71020; 78452; 80048; 80053; 82550; 82553; 82962; 83690; 84484; 85025; 93005; 93010; 93017; A9502; J1170; J1650; J1815; J2785